=== PATIENT | female | born 1995 | race Hispanic/Latino ===

== ENCOUNTER 2022-04-13 22:12 | Emergency (ER) | payer SELFPAY ==
[~2022-04-13] VITALS: Ht 157.5 cm; Wt 51.7 kg
[2022-04-13] MEDS ORDERED: METOCLOPRAMIDE HCL 10 MG/2ML VIAL IV ONE (22:30)
[2022-04-13] MEDS ORDERED: SODIUM CHLORIDE 0.9% 1000ML 1,000 ML STA (22:30)
[2022-04-13] MEDS ORDERED: SODIUM CHLORIDE 0.9% 1000ML 1,000 ML ONE (22:43)
[2022-04-13] MEDS ORDERED: METOCLOPRAMIDE HCL 10 MG/2ML VIAL ONE (22:43)
[2022-04-13] MEDS ORDERED: REGLAN10 MG PO (23:23)
[2022-04-13 23:30] VITALS: BP 112/71
== END 2022-04-13 23:30 | disposition home or self-care (01) ==
LOC: FSED 22:31
DX: O21.9 Vomiting of pregnancy, unspecified (principal); R10.84 Generalized abdominal pain
CPT/HCPCS: 80053; 81003; 85025; 96374; 99283; J2765; J7030